=== PATIENT | female | born 1985 | race Caucasian/White ===

== ENCOUNTER 2016-10-01 17:09 | Emergency (ER) | payer MEDICAID ==
--- NOTE | 2016-10-02 00:11 | ER ---
ADMIT: 10/01/2016 RM/LOC: ER [facility] MR#: [id number] [address] [facility] [address] [place] [id number] LESLIE BLANCO N [address] [place] [address] Emergency Room Report SEX: F AGE: 30 : 1985 DATE: 10/01/2016 TIME: 1709 hours. Primary care is Dr. Mendez and Dr. Bardales of [facility]. Please refer to my T-sheet for complete H and P. HISTORY OF PRESENT ILLNESS: Briefly, the patient is a 30-year-old who comes in with abdominal pain. She has been having it for 4 days. She was actually seen before [address] Bardales[address] office and she says the pain is excruciating /. She is very uncomfortable. She has had her left ovary removed and they said in the office that she had a 2 cm cyst on her right ovary. She thinks that is causing her problem. Things have actually became worse ever since. She had an IUD placed but she had an exam today by OB. PHYSICAL EXAMINATION: VITAL SIGNS: Blood pressure 149/86, pulse 87, respiratory rate 18, temp 98.4, saturating 98%. GENERAL: No acute distress. HEENT: Grossly normal. LUNGS: Clear. HEART: Regular. ABDOMEN: She is tender down the pelvis. No rebound, no guarding. No pain right at McBurney's point. It feels I actually more down in her pelvis. No CVA tenderness. EXTREMITIES: Grossly normal. NEUROLOGIC: Alert and oriented. Nonfocal. EMERGENCY DEPARTMENT COURSE: I gave her L normal saline bolus, Zofran 4 IV, Toradol 30 mg IV. She received morphine through titration here. She is feeling much better. CBC was normal except white count of 11.3, hemoglobin 10.6. Chemistries normal except potassium of 3.6, CO2 of 21. I had a long discussion with her and her family. They will see Ob again tomorrow. ASSESSMENT: 1. Abdominal pain. 2. Right ovarian cyst, may be causing the pain. They do have some concerns about her IUD also. I would like her to follow back up with OB. PLAN: See Ob tomorrow. Return if worse. [place] 5, gave her #15; use Motrin. Shaquille Thorne MD/ jose eduardo JOB #: [id number] CC: Shaquille Thorne MD, Attending Physician Malik Mendez DO, Family Physician
== END 2016-10-01 20:12 | disposition home or self-care (01) ==
LOC: ER 17:09
DX: N83.201 Unspecified ovarian cyst, right side (principal); F17.210 Nicotine dependence, cigarettes, uncomplicated